=== PATIENT | female | born 1960 | race Two or more races ===

== ENCOUNTER → 2025-01-04 | Outpatient (CLI) | payer MEDICAID ==
[~2025-01-04] VITALS: Ht 175.3 cm; Wt 49.0 kg
[2025-01-04] MEDS: REGADENOSON 0.4 MG/5 ML SYRG IV ONE ×2 (10:21)
--- NOTE | 2025-01-04 12:13 | DVHSR ---
APPROVED REPORT Exam: Nuclear Stress Test BMI: 0 Stress Test Details HR Max Heart Rate (APMHR): 158.809852 bpm Target HR (85% APMHR): 134.600731 bpm BP ECG Stress ECG Conclusion lvef 68% normal pefusion scan no severe ischemia noted NM EXAM: Myocardial Perfusion REST/STRESS Imaging Protocol: Rest Tc-99m/Stress Tc-99m 1 day Resting Data Rest SPECT myocardial perfusion imaging was performed in supine position 60 minutes following the int ravenous injection of 11.1 mCi of Tc-99m Sestamibi. Time of rest injection: 09:05 Date: 01/04/2025 Time of rest imagin: Date: 01/04/2025 Administration Route: IV Administration Site: Right AC Pharmacologic Stress Pharmacologic stress test was performed by injecting Regadenoson 0.4 mg IV push followed by the intra venous injection of 32.3 mCi of Tc-99m Sestamibi. Time of stress injection: 10: Date: 01/04/2025 Time of stress imagin: Date: 01/04/2025 Administration Route: IV Administration Site: Right AC Gated Stress SPECT was performed 60 minutes after stress injection. The images were gated to evaluate regional wall motion and calculate left ventricular ejection fracti on. Stress only was performed in the Supine position. Nuclear Conclusion Nuclear Findings: negative for ischemia lvef 68% normal pefusion scan no severe ischemia noted
== END | disposition home or self-care (01) ==
LOC: XYW 08:35
PROVIDERS: ATTEND Specialist
DX: Z01.810 Encounter for preprocedural cardiovascular examination (principal); I50.9 Heart failure, unspecified; J44.9 Chronic obstructive pulmonary disease, unspecified
CPT/HCPCS: 78452; 93017; A9500; J2785

== ENCOUNTER 2025-01-27 12:34 | Inpatient (IN) | payer MEDICAID ==
[~2025-01-27] VITALS: Ht 182.9 cm; Wt 55.2 kg
[2025-01-27 15:20] LABS: Basophils # (auto) 0 10 ^3/uL (0-0.2); Basophils % (auto) 0.7 % (0.0-2.0); Eosinophils # (auto) 0 10 ^3/uL (0-0.8); Hematocrit 28.6 % (36.0-46.0); Lymphocytes # (auto) 0.6 10 ^3/uL (0.4-5.4); Mean Corpuscular Hemoglobin 30.1 pg (28.0-32.0); Monocytes # (auto) 0.3 10 ^3/uL (0-1.3); Neutrophils # (auto) 3.9 10 ^3/uL (1.6-8.6); Red Cell Distribution Width 15.1 % (11.8-14.3)
[2025-01-27 15:22] LABS: Eosinophils % (auto) 0.6 % (0.0-7.0); Hemoglobin 9.4 g/dL (12.2-16.2); Lymphocytes % (auto) 12.2 % (10.0-50.0); Mean Corpuscular Volume 91.1 fL (80.0-100.0); Monocytes % (auto) 5.9 % (0.0-12.0); Neutrophils % (auto) 80.6 % (37.0-80.0); Nucleated Red Blood Cells % 0.1 %; Platelet Count (auto) 629 10^3/uL (140-450); Red Blood Cells 3.13 10^6/uL (4.0-5.20); White Blood Cell 4.9 10^3/uL (4.4-10.8)
--- NOTE | 2025-01-27 15:47 | DVH ---
INDICATION: lower back pain COMPARISON: None TECHNIQUE: 3 views of the lumbar spine were obtained. FINDINGS: There is postsurgical changes with intrapedicular screws and rods seen extending from thoracic to the S1. Vertebral body augmentation of L1 and L3. Disc spacer seen at L1-L2 2 L3 and L5-S1. The lumbar vertebral alignment is normal. The intervertebral disc spaces are well-maintained. No significant facet arthropathy is noted. No acute fracture, vertebral compression deformity or aggressive osseous lesions. The paravertebral soft tissues are grossly unremarkable. This posterior skin brien from recent post op. IMPRESSION: 1. Postsurgical changes with various procedures as described above the lumbar spine appears to be in sa tisfactory position.
[2025-01-27 15:59] LABS: Chloride 107 mmol/L (98-107); Potassium 4.8 mmol/L (3.5-5.1); Sodium 140 mmol/L (136-145)
[2025-01-27 16:00] LABS: Anion Gap 6 (5-15); Carbon Dioxide 27 mmol/L (20-31)
[2025-01-27 16:05] LABS: BUN/Creatinine Ratio 29.5 (10.0-20.0); Blood Urea Nitrogen 18 mg/dL (9-23); Glucose 87 mg/dL (74-106)
[2025-01-27 16:08] LABS: Calcium 8.1 mg/dL (8.7-10.4)
--- NOTE | 2025-01-27 18:35 | ED.PDOC ---
History of Present Illness HPI Comments 64-year-old female states that she had back surgery 2 placed hardware in her back for scoliosis 3 weeks ago and has been recovering in a rehab facility. Patient states that she does not really like the rehab facility and was hoping to find a different place so they sent her to the emergency department. Patient reports chronic back pain upper and lower that has not changed recently. Chief Complaint: Back Pain Time Seen by MD: 17:55 Primary Care Provider: NATACHA Allergies: Coded Allergies: NO KNOWN ALLERGIES (Unverified , 01/04/25) Information Source: Patient, Emergency Med Personnel Mode of Arrival: EMS Severity: Moderate Timing: Days, Weeks, Months Duration: Since onset Past Medical History PAST MEDICAL HISTORY: Arthritis Surgical History (Other): major hardware surgery for scoliosis Social History Smoker: Non-Smoker Alcohol: Denies ETOH Use Musculoskeletal: reports: back pain All Other Systems: Reviewed and Negative Physical Exam General Appearance: Mild Distress, Thin HEENT: Normal ENT Inspection, Pharynx Normal, TMs Normal Neck: Full Range of Motion, Non-Tender, Normal, Normal Inspection Respiratory: Chest Non-Tender, Lungs Clear, No Accessory Muscle Use, No Respiratory Distress, Normal Breath Sounds Cardiovascular: No Edema, No JVD, No Murmur, No Gallop, Normal Peripheral Pulses, Regular Rate/Rhythm Breast Exam: Deferred Gastrointestinal: No Organomegaly, Non Tender, No Pulsatile Mass, Normal Bowel Sounds, Soft Genitalia: Deferred Pelvic: Deferred Rectal: Deferred Extremities: Normal capillary refill, Pelvis stable, Other (long surgical incision from thoracic to lumbar spine area, closed, appears to be healing without complications) Musculoskeletal : Apperance: Normal Neurologic: Alert, careers counsellor II-XII nml as Tested, No Motor Deficits, Normal Affect, Normal Mood, No Sensory Deficits Cerebellar Function: Normal Reflexes: Normal Skin: Normal Color, Warm, Wounds, Other (long surgical incision from thoracic to lumbar spine area, closed, appears to be healing without complications) Lymphatic: No Adenopathy Was a procedure done? Was a procedure done?: No Differential Dx Considerations may include: Differential diagnosis includes but not limited to: Bony fracture, dislocation, compartment syndrome, infection, nerve injury, vascular injury and others X-Ray, Labs, Meds, VS Vital Signs Date Time Temp Pulse Resp B/P (MAP) Pulse Ox O2 Delivery O2 Flow Rate FiO2 01/27/25 18:17 98.0 87 16 105/74 (84) 94 98.0 01/27/25 12:34 97.5 90 18 98/70 (79) 94 97.5 Lab Test 01/27/25 15:00 Range/Units White Blood Count 4.9 4.4-10.8 10^3/uL Red Blood Count 3.13 L 4.0-5.20 10^6/uL Hemoglobin 9.4 L 12.2-16.2 g/dL Hematocrit 28.6 L 36.0-46.0 % Mean Corpuscular Volume 91.1 80.0-100.0 fL Mean Corpuscular Hemoglobin 30.1 28.0-32.0 pg Mean Corpuscular Hemoglobin Concent 33.0 32.0-36.0 g/dL Red Cell Distribution Width 15.1 H 11.8-14.3 % Platelet Count 629 H 140-450 10^3/uL Mean Platelet Volume 6.2 L 6.9-10.8 fL Neutrophils (%) (Auto) 80.6 H 37.0-80.0 % Lymphocytes (%) (Auto) 12.2 10.0-50.0 % Monocytes (%) (Auto) 5.9 0.0-12.0 % Eosinophils (%) (Auto) 0.6 0.0-7.0 % Basophils (%) (Auto) 0.7 0.0-2.0 % Neutrophils # (Auto) 3.9 1.6-8.6 10 ^3/uL Lymphocytes # (Auto) 0.6 0.4-5.4 10 ^3/uL Monocytes # (Auto) 0.3 0-1.3 10 ^3/uL Eosinophils # (Auto) 0 0-0.8 10 ^3/uL Basophils # (Auto) 0 0-0.2 10 ^3/uL Nucleated Red Blood Cells 0.1 % Sodium Level 140 136-145 mmol/L Potassium Level 4.8 3.5-5.1 mmol/L Chloride Level 107 98-107 mmol/L Carbon Dioxide Level 27 20-31 mmol/L Anion Gap 6 5-15 Blood Urea Nitrogen 18 9-23 mg/dL Creatinine 0.61 0.550-1.02 mg/dL Glomerular Filtration Rate Calc 101 >90 mL/min BUN/Creatinine Ratio 29.5 H 10.0-20.0 Serum Glucose 87 74-106 mg/dL Calcium Level 8.1 L 8.7-10.4 mg/dL Beta HCG, Quantitative 4.0 1.5-4.2 mIU/mL Time of 1ST Reevaluation: 18:33 Reevaluation 1ST: Unchanged Patient Education/Counseling: Diagnosis, Treatment Family Education/Counseling: No Family Present Departure 1 Departure Time of Disposition: 18:33 Impression: Primary Impression: Chronic back pain Disposition: [facility] INPATIENT REHAB FACILITY Condition: Stable Additional Instructions: Follow up with your Primary Physician Return to the Emergency Department for any worsening symptoms or concerns Discharged With: Self Comments January 27, 6:00 p.m.: services clerk unavailable to help the patient find new placement for rehab facility at this time. Patient to return to her current rehab facility over the weekend and can pursue a different facility on Thursday Critical Care Note Critical Care Time?: No Stability Stability form required: No Heart Score Heart Score: Heart Score Response (Comments) Value History N/A 0 EKG N/A 0 Age N/A 0 Risk Factors N/A 0 Troponin N/A 0 Total 0 XU NICHOLS MD January 27, 2025 18:35
[2025-01-27 19:20] VITALS: PULSE 76; RESP 24; O2SAT 96
[2025-01-27] MEDS ORDERED: ONDANSETRON HCL 4 MG/2 ML VIAL IV PRN (22:45)
[2025-01-27] MEDS ORDERED: MORPHINE SULFATE INJ 2 MG/ml SYRG IV PRN (22:45)
[2025-01-27] MEDS ORDERED: ACETAMINOPHEN 325 MG TAB PO PRN (22:45)
[2025-01-27] MEDS ORDERED: DOCUSATE SOD 100 MG CAP PO PRN (22:45)
[2025-01-27] MEDS ORDERED: NITROGLYCERIN 0.4 MG SL TAB SL PRN (22:45)
[2025-01-27] MEDS: oxyCODONE ER 10 MG TAB PO ONE (22:54)
[2025-01-27] MEDS: SODIUM CHLORIDE 0.9% 1,000 ML IV SCH (23:13)
[2025-01-27] MEDS: ENOXAPARIN SOD 40 MG/0.4 ML SYRINGE SC SCH (23:14)
[2025-01-28] VITALS (7 sets, daily range): BP systolic 88–108; BP diastolic 52–72; PULSE 78–93; RESP 14–18; TEMP 97.5–98; O2SAT 93–100
[2025-01-28] MEDS: HYDROcodone-ACET 5/325MG TAB PO PRN (01:21)
[2025-01-28] MEDS: MORPHINE SULFATE INJ 2 MG/ml SYRG IV PRN (02:36)
[2025-01-28] MEDS ORDERED: GABA-1250 PO ×2 (02:59→03:11)
[2025-01-28] MEDS ORDERED: MID10T PO ×2 (02:59→03:11)
[2025-01-28] MEDS ORDERED: APIX2.5T PO (02:59)
[2025-01-28] MEDS ORDERED: LEVO112T4 PO (03:11)
[2025-01-28] MEDS ORDERED: APIX5TAB PO (03:11)
[2025-01-28] MEDS ORDERED: CHOL400C15 PO (03:11)
[2025-01-28] MEDS ORDERED: IBU600T PO (03:11)
[2025-01-28] MEDS ORDERED: AMPH10TA2 PO (03:11)
[2025-01-28] MEDS ORDERED: OXYC-113 PO (03:11)
[2025-01-28] MEDS ORDERED: ROMO105I SC (03:11)
[2025-01-28] MEDS ORDERED: ALBU2TAB11 PO (03:11)
[2025-01-28 07:09] LABS: COVID19 ANTIGEN SOFIA FIA NEGATIVE (NEGATIVE)
--- NOTE | 2025-01-28 07:12 | DVHHP2 ---
Admitting Diagnosis: Generalized weakness. History of Present Illness Patient is a 64 y/o female with a PMHx of chronic back pain coming in with a complaint of generalized weakness s/p major back surgery for scoliosis x 3 weeks ago, Patient also states that her post-op health is declining. While in the emergency department the patient was evaluated by the provider, Labs, vital signs, and imagining monitored. Patient will be admitted for further evaluation and treatment. I discussed admission with the patient/family and is in agreement to treatment plan. Patient Family History: FH: heart attack Grandmother FH: lung cancer Uncle FH: neuropathy Grandmother High blood pressure Grandmother Varicose veins G8 MOTHER Allergies: Coded Allergies: NO KNOWN ALLERGIES (Unverified , 01/04/25) Home Meds Reported Medications Oxycodone W/ Acetaminophen (Endocet) 1 Tab Tab, 1 TAB PO QID, #120 TAB 01/28/25 Ibuprofen Micronized (MOTRIN TABLET) 600 Mg Tb, 800 MG PO PRN, #40 TAB *Black box warning-NSAIDS can increase risk of RI & hypertension, GI irritation, ulceration, bleed, perferation. Do not use post cardiac surgery. Use short duration/lowest effective dose. 01/28/25 Amphetamine-Dextroamphetamine (Adderall) 10 Mg Tab, 15 MG PO TID, TAB 01/28/25 Apixaban Base (ELIQUIS) 5 Mg Tab, 5 MG PO BID, TAB 01/28/25 Romosozumab-Aqqg (Evenity) 105 Mg/1.17 Ml Inj, 210 MG SC, INJ 01/28/25 Gabapentin (Gabapentin) 300 Mg Cap, 300 MG PO TID for 30 Days, MG 01/28/25 Levothyroxine Sodium (Levothyroxine Sodium) 112 Mcg Tab, 112 MCG PO QAM for 30 Days, MCG 01/28/25 Midodrine HCl (Midodrine HCl) 10 Mg Tab, 10 MG PO TID, TAB 01/28/25 Albuterol Sulfate (Albuterol Sulfate) 2 Mg Tab, 0.09 MG PO Q6HP, MG 01/28/25 Cholecalciferol (VITAMIN D3) 400 Unit Cap, 125 MG PO DAILY, CAP 01/28/25 Discontinued Reported Medications Midodrine HCl (Midodrine HCl) 10 Mg Tab, PO TID, TAB 01/28/25 Apixaban Base (ELIQUIS) 2.5 Mg Tab, PO BID, TAB 01/28/25 Gabapentin (Gabapentin) 300 Mg Cap, PO TID for 30 Days, MG 01/28/25 Current Medications Current Medications Medications (Trade) Dose Ordered Sig/Maryan Route PRN Reason Start Time Stop Time Status Last Admin Sodium Chloride 1,000 ml @ 120 mls/hr Q8H20M IV 01/27/25 22:45 01/28/25 15:49 Acetaminophen (Tylenol Tablet) 325 mg Q4HP PRN PO MILD PAIN (1-3 PAIN SCALE) 01/27/25 22:45 Acetaminophen/ Hydrocodone Bitart ([place] 5/325MG Tab) 1 tab Q4HP PRN PO MODERATE PAIN (4-6 PAIN SCALE) 01/27/25 22:45 01/28/25 17:52 Ondansetron HCl (Zofran) 4 mg Q4HP PRN IV NAUSEA / VOMITING 01/27/25 22:45 Docusate Sodium (Colace Capsule) 100 mg BIDPRN PRN PO FOR CONSTIPATION 01/27/25 22:45 Morphine Sulfate 2 mg Q4HPRN PRN IV SEVERE PAIN (7-10 PAIN SCALE) 01/27/25 22:45 01/28/25 02:36 Enoxaparin Sodium (Lovenox) 40 mg DAILY SC 01/27/25 22:45 01/27/25 23:14 Nitroglycerin (Ntrostat Sublingual) 0.4 mg Q5MINP PRN SL FOR CHEST PAIN 01/27/25 22:45 Morphine Sulfate 2 mg Q30M PRN IV FOR CHEST PAIN 01/27/25 22:45 Review of Systems Constitutional: denies chills, denies fever, denies malaise Eyes: denies eye pain, denies vision change ENT: denies ear pain, denies headache, denies nasal congestion, denies painful swallowing, denies voice change Cardiovascular: denies chest pain, denies edema, denies orthopnea, denies palpitations, denies paroxysmal nocturnal dyspnea Respiratory: denies cough, denies shortness of breath Gastrointestinal: denies constipation, denies diarrhea, denies nausea, denies vomiting Genitourinary: denies dysuria, denies frequent urination, denies urethral discharge Musculoskeletal: denies back pain, denies joint pain, denies muscle pain Skin: denies bruising, denies itching, denies rash Neurological: denies focal weakness, denies headache, denies sensory changes Psychiatric: denies anxiety, denies depression Endocrine: denies polydipsia, denies polyuria Hematologic/Lymphatic: denies easy bleeding, denies easy bruising, denies enlarged lymph nodes Allergic/Immunologic: denies allergy, denies hives Vital Signs Vital Signs Date Time Temp Pulse Resp B/P (MAP) Pulse Ox O2 Delivery O2 Flow Rate FiO2 01/28/25 17:00 97.8 89 18 105/62 (76) 93 97.8 01/28/25 08:00 Room Air* 0 21 Physical Exam General Appearance: alert, no distress HEENT: EOMI, PERRLA, normal external inspect of ears, no icterus, no nasal drainage Neck: no carotid bruit, no jugular venous distention (JVD), no lymphadenopathy Chest: normal thorax Respiratory: clear to auscultation, normal air movement Cardiovascular: regular rate and rhythm, no diastolic murmur, no jugular venous distention (JVD), no rub, no systolic murmur Abdominal: soft, no hepatomegaly, no mass, no splenomegaly, no tenderness Genitourinary: grossly normal external Musculoskeletal: no joint tenderness, no swelling Extremities: normal pulses, no calf tenderness, no clubbing, no cyanosis, no edema Skin: no bruising, no jaundice, no rash Neurological: alert, No focal deficit Results Labs Test 01/28/25 06:00 01/28/25 05:36 01/27/25 15:00 Range/Units SARS-CoV-2 Antigen (Rapid) Negative NEGATIVE White Blood Count 3.9 L 4.4-10.8 10^3/uL Red Blood Count 3.35 L 4.0-5.20 10^6/uL Hemoglobin 10.1 L 12.2-16.2 g/dL Hematocrit 31.8 #L 36.0-46.0 % Mean Corpuscular Volume 94.7 80.0-100.0 fL Mean Corpuscular Hemoglobin 30.0 28.0-32.0 pg Mean Corpuscular Hemoglobin Concent 31.7 L 32.0-36.0 g/dL Red Cell Distribution Width 15.7 H 11.8-14.3 % Platelet Count 485 H 140-450 10^3/uL Mean Platelet Volume 6.9 6.9-10.8 fL Neutrophils (%) (Auto) 75.4 37.0-80.0 % Lymphocytes (%) (Auto) 17.0 10.0-50.0 % Monocytes (%) (Auto) 6.2 0.0-12.0 % Eosinophils (%) (Auto) 0.4 0.0-7.0 % Basophils (%) (Auto) 1.0 0.0-2.0 % Neutrophils # (Auto) 2.9 1.6-8.6 10 ^3/uL Lymphocytes # (Auto) 0.7 0.4-5.4 10 ^3/uL Monocytes # (Auto) 0.2 0-1.3 10 ^3/uL Eosinophils # (Auto) 0 0-0.8 10 ^3/uL Basophils # (Auto) 0 0-0.2 10 ^3/uL Nucleated Red Blood Cells 0.1 % Sodium Level 137 136-145 mmol/L Potassium Level 4.3 3.5-5.1 mmol/L Chloride Level 107 98-107 mmol/L Carbon Dioxide Level 20 20-31 mmol/L Anion Gap 10 5-15 Blood Urea Nitrogen 13 9-23 mg/dL Creatinine 0.58 0.550-1.02 mg/dL Glomerular Filtration Rate Calc 102 >90 mL/min BUN/Creatinine Ratio 22.4 H 10.0-20.0 Serum Glucose 78 74-106 mg/dL Calcium Level 8.8 8.7-10.4 mg/dL Total Bilirubin 0.3 0.2-1.0 mg/dL Aspartate Amino Transferase (AST) 35 13-40 U/L Alanine Aminotransferase (ALT) 24 7-40 U/L Alkaline Phosphatase 195 H 46-116 U/L Total Protein 5.9 5.7-8.2 g/dL Albumin 3.3 3.2-4.8 g/dL Beta HCG, Quantitative 4.0 1.5-4.2 mIU/mL Microbiology Date/Time Source Procedure Growth Status 01/28/25 05:55 Nose MRSA Screen - Final Complete Admitting Diagnosis: 1. Dehydration IV fluids 2. Failure to thrive managed services sales consultant consult, DC planning 3. Chronic post operative pain PRN Pain meds 4. COPD Medication, monitoring 5. Cachexia General Diet Plan discussed with: Patient, Other SARAH BARRAZA NP January 28, 2025 07:12
--- NOTE | 2025-01-28 07:13 | DVHDS2 ---
Discharge Summary Date of Admission January 27, 2025 at 22:39 Date of Discharge: January 27, 2025 Labs/Diagnostic Data: Laboratory Results Test 01/28/25 06:00 01/28/25 05:36 01/27/25 15:00 SARS-CoV-2 Antigen (Rapid) Negative (NEGATIVE) Eosinophils (%) (Auto) 0.6 % (0.0-7.0) Eosinophils # (Auto) 0 10 ^3/uL (0-0.8) Basophils # (Auto) 0 10 ^3/uL (0-0.2) Nucleated Red Blood Cells 0.1 % Beta HCG, Quantitative 4.0 mIU/mL (1.5-4.2) Discharge Disposition: [facility] Discharge Instruct/Medications Diet: Cardiac 2g Na,low cholest Activity: Light activity Discharge Statement: "Patient was advised to return to the ER or call 911 if any headaches, dizziness, shortness of breath, chest pain, abdominal pain, bleeding, fevers, or worsening of medical condition. Patient was counseled about treatment plan, medications, possible side effects, patientverbalized understanding. All questions were answered to the best of my ability. This discharge took greater then 30 minutes in planning, reviewing documen tation, counseling the patient, and discussing with other team members." ASSESSMENT ASSESSMENT Assessment SARAH BARRAZA NP January 28, 2025 07:13
[2025-01-28 07:16] LABS: Alanine Aminotransferase 24 U/L (7-40); Albumin 3.3 g/dL (3.2-4.8); Anion Gap 10 (5-15); Aspartate Aminotransferase 35 U/L (13-40); BUN/Creatinine Ratio 22.4 (10.0-20.0); Blood Urea Nitrogen 13 mg/dL (9-23); Calcium 8.8 mg/dL (8.7-10.4); Glucose 78 mg/dL (74-106); Potassium 4.3 mmol/L (3.5-5.1); Sodium 137 mmol/L (136-145); Total Protein 5.9 g/dL (5.7-8.2)
[2025-01-28 07:18] LABS: Alkaline Phosphatase 195 U/L (46-116); Bilirubin, Total 0.3 mg/dL (0.2-1.0); Carbon Dioxide 20 mmol/L (20-31); Chloride 107 mmol/L (98-107)
[2025-01-28 07:43] LABS: Basophils # (auto) 0 10 ^3/uL (0-0.2); Eosinophils # (auto) 0 10 ^3/uL (0-0.8)
[2025-01-28 07:51] LABS: Eosinophils % (auto) 0.4 % (0.0-7.0); Hematocrit 31.8 % (36.0-46.0); Hemoglobin 10.1 g/dL (12.2-16.2); Lymphocytes # (auto) 0.7 10 ^3/uL (0.4-5.4); Mean Corpuscular Hgb Conc. 31.7 g/dL (32.0-36.0); Mean Corpuscular Volume 94.7 fL (80.0-100.0); Monocytes # (auto) 0.2 10 ^3/uL (0-1.3); Monocytes % (auto) 6.2 % (0.0-12.0); Neutrophils # (auto) 2.9 10 ^3/uL (1.6-8.6); Neutrophils % (auto) 75.4 % (37.0-80.0); Nucleated Red Blood Cells % 0.1 %; Platelet Count (auto) 485 10^3/uL (140-450); Red Blood Cells 3.35 10^6/uL (4.0-5.20); Red Cell Distribution Width 15.7 % (11.8-14.3); White Blood Cell 3.9 10^3/uL (4.4-10.8)
--- NOTE | 2025-01-28 12:18 | DVHPN2 ---
Progress Note - Dictate Date Seen: January 28, 2025 Medical Necessity Reason Pt with a Central, PICC or Fol: No vital signs Vital Sign Date Time Temp Pulse Resp B/P (MAP) Pulse Ox O2 Delivery O2 Flow Rate FiO2 01/28/25 08:38 97.7 93 18 98/71 (80) 96 97.7 01/28/25 08:00 Room Air* 0 21 Total Intake and Output 01/27/25 01/27/25 01/28/25 15:00 23:00 07:00 Intake Total 490 ml Balance 490 ml medications Current Medications Medications Dose Ordered Sig/Maryan Route Start Time Stop Time Status Last Admin Dose Admin Sodium Chloride 1,000 ml @ 120 mls/hr Q8H20M IV 01/27/25 22:45 01/27/25 23:13 120 MLS/HR Acetaminophen 325 mg Q4HP PRN PO 01/27/25 22:45 Acetaminophen/ Hydrocodone Bitart 1 tab Q4HP PRN PO 01/27/25 22:45 01/28/25 01:21 1 TAB Ondansetron HCl 4 mg Q4HP PRN IV 01/27/25 22:45 Docusate Sodium 100 mg BIDPRN PRN PO 01/27/25 22:45 Morphine Sulfate 2 mg Q4HPRN PRN IV 01/27/25 22:45 01/28/25 02:36 2 MG Enoxaparin Sodium 40 mg DAILY SC 01/27/25 22:45 01/27/25 23:14 40 MG Nitroglycerin 0.4 mg Q5MINP PRN SL 01/27/25 22:45 Morphine Sulfate 2 mg Q30M PRN IV 01/27/25 22:45 objective General Appearance: alert, no distress HEENT: EOMI, PERRLA, normal external inspect of ears, no icterus, no nasal drainage Neck: no carotid bruit, no jugular venous distention (JVD), no lymphadenopathy Chest: normal thorax Respiratory: clear to auscultation, normal air movement Cardiovascular: regular rate and rhythm, no diastolic murmur, no jugular venous distention (JVD), no rub, no systolic murmur Abdominal: soft, no hepatomegaly, no mass, no splenomegaly, no tenderness Genitourinary: grossly normal external Musculoskeletal: no joint tenderness, no swelling Extremities: normal pulses, no calf tenderness, no clubbing, no cyanosis, no edema Skin: no bruising, no jaundice, no rash Neurological: alert, No focal deficit laboratory and microbiology Laboratory Tests 01/28/25 05:36 Test 01/28/25 05:36 Range/Units Serum Glucose 78 74-106 mg/dL Problem List 1. Dehydration IV fluids 2. Failure to thrive convention services manager consult, DC planning 3. Chronic post operative pain PRN Pain meds 4. COPD Medication, monitoring 5. Cachexia General Diet Assessment/Plan Subjective: Patient is awake and alert. Objective: Patient was admitted for dehydration, generalized weakness, and failure to thrive. Patient is from [facility]. Patient reportedly had back surgery three weeks ago for scoliosis. Plan: Physical therapy evaluation. Patient is requesting forensic social worker consult for discharge planning to [facility]. Plan discussed with: Patient, Other SARAH BARRAZA NP January 28, 2025 12:18
[2025-01-29 01:00] VITALS: BP 101/61; PULSE 83; RESP 14; TEMP 97.8; O2SAT 99
[2025-01-29 05:00] VITALS: BP 102/54; PULSE 72; RESP 14; TEMP 97.7; O2SAT 100
--- NOTE | 2025-01-29 07:44 | DVHPN2 ---
Progress Note - Dictate Date Seen: January 29, 2025 Medical Necessity Reason Pt with a Central, PICC or Fol: No vital signs Vital Sign Date Time Temp Pulse Resp B/P (MAP) Pulse Ox O2 Delivery O2 Flow Rate FiO2 01/29/25 05:00 97.7 72 14 102/54 (70) 100 97.7 01/28/25 20:00 Nasal Cannula* 2 28 Total Intake and Output 01/28/25 01/28/25 01/29/25 15:00 23:00 07:00 Intake Total 240 ml 400 ml Output Total 400 ml Balance -160 ml 400 ml medications Current Medications Medications Dose Ordered Sig/Maryan Route Start Time Stop Time Status Last Admin Dose Admin Sodium Chloride 1,000 ml @ 120 mls/hr Q8H20M IV 01/27/25 22:45 01/28/25 15:49 120 MLS/HR Acetaminophen 325 mg Q4HP PRN PO 01/27/25 22:45 Acetaminophen/ Hydrocodone Bitart 1 tab Q4HP PRN PO 01/27/25 22:45 01/29/25 00:31 1 TAB Ondansetron HCl 4 mg Q4HP PRN IV 01/27/25 22:45 Docusate Sodium 100 mg BIDPRN PRN PO 01/27/25 22:45 Morphine Sulfate 2 mg Q4HPRN PRN IV 01/27/25 22:45 01/28/25 21:25 2 MG Enoxaparin Sodium 40 mg DAILY SC 01/27/25 22:45 01/27/25 23:14 40 MG Nitroglycerin 0.4 mg Q5MINP PRN SL 01/27/25 22:45 Morphine Sulfate 2 mg Q30M PRN IV 01/27/25 22:45 objective General Appearance: alert, no distress HEENT: EOMI, PERRLA, normal external inspect of ears, no icterus, no nasal drainage Neck: no carotid bruit, no jugular venous distention (JVD), no lymphadenopathy Chest: normal thorax Respiratory: clear to auscultation, normal air movement Cardiovascular: regular rate and rhythm, no diastolic murmur, no jugular venous distention (JVD), no rub, no systolic murmur Abdominal: soft, no hepatomegaly, no mass, no splenomegaly, no tenderness Genitourinary: grossly normal external Musculoskeletal: no joint tenderness, no swelling Extremities: normal pulses, no calf tenderness, no clubbing, no cyanosis, no edema Skin: no bruising, no jaundice, no rash Neurological: alert, No focal deficit laboratory and microbiology Laboratory Tests 01/28/25 05:36 Test 01/28/25 05:36 Range/Units Serum Glucose 78 74-106 mg/dL Problem List 1. Dehydration IV fluids 2. Failure to thrive director of business services consult, DC planning 3. Chronic post operative pain PRN Pain meds 4. COPD Medication, monitoring 5. Cachexia General Diet Assessment/Plan Subjective Patient is awake and alert. Objective Discussed with patient in regards of plan of care. Patient was admitted from [facility]. She was found to be dehydrated and very cachectic. Patient had a recent lumbar back surgery for scoliosis. She is requesting a SNF down the [place]. director of business services have been consulted. Plan Stop IV fluids. Patient is eating and drinking well. Adjust pain medications. Continue physical therapy. Plan for discharge once bed is available. Plan discussed with: Patient, Other SARAH BARRAZA NP January 29, 2025 07:44
[2025-01-29] MEDS ORDERED: IBUPROFEN 600 MG TAB PO SCH (07:45)
[2025-01-29] MEDS ORDERED: OXYCODONE PO PRN (08:30)
[2025-01-29] MEDS ORDERED: ACETAMINOPHEN 325 MG TAB PO PRN (08:30)
[2025-01-29] MEDS ORDERED: ACETAMINOPHEN PO PRN (08:30)
[2025-01-29] MEDS: GABAPENTIN 300 MG CAP PO SCH (08:35)
[2025-01-29] MEDS: APIXABAN 5 MG TAB PO SCH (08:36)
[2025-01-29 08:47] VITALS: BP 108/73; PULSE 71; RESP 18; TEMP 97.9; O2SAT 97
[2025-01-29 10:00] LABS: Potassium 3.7 mmol/L (3.5-5.1); Sodium 143 mmol/L (136-145)
[2025-01-29 10:01] LABS: Anion Gap 8 (5-15); Carbon Dioxide 27 mmol/L (20-31)
[2025-01-29 10:06] LABS: BUN/Creatinine Ratio 24.1 (10.0-20.0); Blood Urea Nitrogen 14 mg/dL (9-23); Glucose 94 mg/dL (74-106)
[2025-01-29 10:07] LABS: Chloride 108 mmol/L (98-107); Magnesium 1.8 mg/dL (1.6-2.6)
[2025-01-29 10:08] LABS: Phosphorus 2.6 mg/dL (2.4-5.1)
[2025-01-29] MEDS: CHOLECALCIFEROL (VITD3) 1,000UNIT=25mCg TAB PO SCH (11:45)
[2025-01-29] MEDS: HYDROmorphone HCL 2 MG/ML VL/or syr IV ONE (11:46)
[2025-01-29] MEDS ORDERED: ACETAMINOPHEN PO SCH (12:00)
[2025-01-29] MEDS ORDERED: OXYCODONE PO SCH (12:00)
[2025-01-29 12:42] VITALS: BP 104/65; PULSE 94; RESP 18; TEMP 98.1; O2SAT 98
[2025-01-29] MEDS: MIDODRINE HCL 10 MG TAB PO SCH (13:30)
[2025-01-29] MEDS: AMPHETAMINE DEXTROAMPHETAMINE PO SCH (13:50)
[2025-01-29 17:02] VITALS: BP 102/60; PULSE 78; RESP 18; TEMP 97.7; O2SAT 100
[2025-01-29 20:48] VITALS: BP 96/70; PULSE 102; RESP 16; TEMP 97.8; O2SAT 93
[2025-01-30] VITALS (8 sets, daily range): BP systolic 99–115; BP diastolic 59–74; PULSE 77–101; RESP 16–17; TEMP 97.7–98.4; O2SAT 95–100
[2025-01-30] MEDS: LEVOTHYROXINE SODIUM 112 MCG TAB PO SCH (05:50)
[2025-01-30] MEDS: IBUPROFEN 600 MG TAB PO PRN (09:43)
[2025-01-30] MEDS ORDERED: PERCOT PO (11:38)
[2025-01-30] MEDS ORDERED: NALO4SPR2 (11:38)
--- NOTE | 2025-01-30 20:23 | DVHDS2 ---
Discharge Summary Date of Admission January 27, 2025 at 22:39 Date of Discharge: January 30, 2025 Labs/Diagnostic Data: Laboratory Results Test 01/29/25 09:35 01/28/25 06:00 01/28/25 05:36 01/27/25 15:00 Sodium Level 143 mmol/L (136-145) Potassium Level 3.7 mmol/L (3.5-5.1) Chloride Level 108 mmol/L (98-107) Carbon Dioxide Level 27 mmol/L (20-31) Anion Gap 8 (5-15) Blood Urea Nitrogen 14 mg/dL (9-23) Creatinine 0.58 mg/dL (0.550-1.02) Glomerular Filtration Rate Calc 102 mL/min (>90) BUN/Creatinine Ratio 24.1 (10.0-20.0) Serum Glucose 94 mg/dL (74-106) Calcium Level 9.0 mg/dL (8.7-10.4) Phosphorus Level 2.6 mg/dL (2.4-5.1) Magnesium Level 1.8 mg/dL (1.6-2.6) Thyroid Stimulating Hormone (TSH) 6.08 uIU/mL (0.55-4.78) SARS-CoV-2 Antigen (Rapid) Negative (NEGATIVE) White Blood Count 3.9 10^3/uL (4.4-10.8) Red Blood Count 3.35 10^6/uL (4.0-5.20) Hemoglobin 10.1 g/dL (12.2-16.2) Hematocrit 31.8 % (36.0-46.0) Mean Corpuscular Volume 94.7 fL (80.0-100.0) Mean Corpuscular Hemoglobin 30.0 pg (28.0-32.0) Mean Corpuscular Hemoglobin Concent 31.7 g/dL (32.0-36.0) Red Cell Distribution Width 15.7 % (11.8-14.3) Platelet Count 485 10^3/uL (140-450) Mean Platelet Volume 6.9 fL (6.9-10.8) Neutrophils (%) (Auto) 75.4 % (37.0-80.0) Lymphocytes (%) (Auto) 17.0 % (10.0-50.0) Monocytes (%) (Auto) 6.2 % (0.0-12.0) Eosinophils (%) (Auto) 0.4 % (0.0-7.0) Basophils (%) (Auto) 1.0 % (0.0-2.0) Neutrophils # (Auto) 2.9 10 ^3/uL (1.6-8.6) Lymphocytes # (Auto) 0.7 10 ^3/uL (0.4-5.4) Monocytes # (Auto) 0.2 10 ^3/uL (0-1.3) Eosinophils # (Auto) 0 10 ^3/uL (0-0.8) Basophils # (Auto) 0 10 ^3/uL (0-0.2) Nucleated Red Blood Cells 0.1 % Total Bilirubin 0.3 mg/dL (0.2-1.0) Aspartate Amino Transferase (AST) 35 U/L (13-40) Alanine Aminotransferase (ALT) 24 U/L (7-40) Alkaline Phosphatase 195 U/L (46-116) Total Protein 5.9 g/dL (5.7-8.2) Albumin 3.3 g/dL (3.2-4.8) Beta HCG, Quantitative 4.0 mIU/mL (1.5-4.2) Other Laboratory Tests 01/29/25 09:35 01/28/25 05:36 Brief Hx & Hospital Course: Patient is a 64 y/o female with a PMHx of chronic back pain coming in with a complaint of generalized weakness s/p major back surgery for scoliosis x 3 weeks ago, Patient also states that her post-op health is declining. While in the emergency department the patient was evaluated by the provider, Labs, vital signs, and imagining monitored. Patient was admitted on 01/27/2025 from [facility]. Patient states she was there for less than 24 hours. She was transferred from a rehab center down [facility]. Patient states she spent 3 weeks at [facility] status post lumbar back surgery for scoliosis. Patient was found to be cachectic, failure to thrive, and she was dehydrated. Patient had a liberal diet and she was given IV fluids. Patient was also seen and evaluated by physical therapy and she was able to ambulate well. Patient decided against going to a intermediate facility and home health was arranged with DME. Patient was instructed to follow-up with her PCP in 1 week. She states she will follow-up with her orthopedic spinal surgeon in 1 week. The patient received proper medical treatment and medications. Vital signs, Imaging and Laboratory Work was monitored daily. All consults recommendations were followed as provided. There were no complaints or new complaints upon discharge, all questions and concerns were answered. Patient was advised to return to the ER or call 911 if any headaches, dizziness, shortness of breath, chest pain, bleeding, fevers, or worsening of medical condition. Patient/Family was counseled about treatment plan, medications, possible side effects, patient verbalized understanding. All questions were answered to the best of my ability. The patient symptoms improved and they are okay to be DC. Condition at Discharge: Stable Final Diagnosis/Problems List Chronic back pain Recent surgery for scoliosis Dehydration Failure to thrive Chronic post operative pain COPD Cachexia Discharge Disposition: Home with Health Services Discharge Instruct/Medications Diet: Cardiac 2g Na,low cholest Activity: Light activity Follow Up/Referral: DC TO SNF FOR REHAB RECENT BACK SURGERY 3 WEEKS AGO WITH HARDWARE PLACEMENT FOR SCOLIOSIS Medications: SEE DC MED LIST Discharge Statement: "Patient was advised to return to the ER or call 911 if any headaches, dizziness, shortness of breath, chest pain, abdominal pain, bleeding, fevers, or worsening of medical condition. Patient was counseled about treatment plan, medications, possible side effects, patientverbalized understanding. All questions were answered to the best of my ability. This discharge took greater then 30 minutes in planning, reviewing documentation, counseling the patient, and discussing with other team members." ASSESSMENT ASSESSMENT Assessment DEHYDRATION CHRONIC BACK PAIN FAILURE TO THRIVE RECENT BACK SURGERY FOR SCOLIOSIS SARAH BARRAZA NP January 30, 2025 20:23
[2025-01-31] VITALS (7 sets, daily range): BP systolic 95–107; BP diastolic 53–70; PULSE 74–93; RESP 17–19; TEMP 97.8–98.4; O2SAT 96–98
--- NOTE | 2025-01-31 16:57 | DVHDS2 ---
Discharge Summary Date of Admission January 27, 2025 at 22:39 Date of Discharge: January 30, 2025 Labs/Diagnostic Data: Laboratory Results Test 01/29/25 09:35 01/28/25 06:00 01/28/25 05:36 01/27/25 15:00 Sodium Level 143 mmol/L (136-145) Potassium Level 3.7 mmol/L (3.5-5.1) Chloride Level 108 mmol/L (98-107) Carbon Dioxide Level 27 mmol/L (20-31) Anion Gap 8 (5-15) Blood Urea Nitrogen 14 mg/dL (9-23) Creatinine 0.58 mg/dL (0.550-1.02) Glomerular Filtration Rate Calc 102 mL/min (>90) BUN/Creatinine Ratio 24.1 (10.0-20.0) Serum Glucose 94 mg/dL (74-106) Calcium Level 9.0 mg/dL (8.7-10.4) Phosphorus Level 2.6 mg/dL (2.4-5.1) Magnesium Level 1.8 mg/dL (1.6-2.6) Thyroid Stimulating Hormone (TSH) 6.08 uIU/mL (0.55-4.78) SARS-CoV-2 Antigen (Rapid) Negative (NEGATIVE) White Blood Count 3.9 10^3/uL (4.4-10.8) Red Blood Count 3.35 10^6/uL (4.0-5.20) Hemoglobin 10.1 g/dL (12.2-16.2) Hematocrit 31.8 % (36.0-46.0) Mean Corpuscular Volume 94.7 fL (80.0-100.0) Mean Corpuscular Hemoglobin 30.0 pg (28.0-32.0) Mean Corpuscular Hemoglobin Concent 31.7 g/dL (32.0-36.0) Red Cell Distribution Width 15.7 % (11.8-14.3) Platelet Count 485 10^3/uL (140-450) Mean Platelet Volume 6.9 fL (6.9-10.8) Neutrophils (%) (Auto) 75.4 % (37.0-80.0) Lymphocytes (%) (Auto) 17.0 % (10.0-50.0) Monocytes (%) (Auto) 6.2 % (0.0-12.0) Eosinophils (%) (Auto) 0.4 % (0.0-7.0) Basophils (%) (Auto) 1.0 % (0.0-2.0) Neutrophils # (Auto) 2.9 10 ^3/uL (1.6-8.6) Lymphocytes # (Auto) 0.7 10 ^3/uL (0.4-5.4) Monocytes # (Auto) 0.2 10 ^3/uL (0-1.3) Eosinophils # (Auto) 0 10 ^3/uL (0-0.8) Basophils # (Auto) 0 10 ^3/uL (0-0.2) Nucleated Red Blood Cells 0.1 % Total Bilirubin 0.3 mg/dL (0.2-1.0) Aspartate Amino Transferase (AST) 35 U/L (13-40) Alanine Aminotransferase (ALT) 24 U/L (7-40) Alkaline Phosphatase 195 U/L (46-116) Total Protein 5.9 g/dL (5.7-8.2) Albumin 3.3 g/dL (3.2-4.8) Beta HCG, Quantitative 4.0 mIU/mL (1.5-4.2) Other Laboratory Tests 01/29/25 09:35 01/28/25 05:36 Brief Hx & Hospital Course: Patient is a 64 y/o female with a PMHx of chronic back pain coming in with a complaint of generalized weakness s/p major back surgery for scoliosis x 3 weeks ago, Patient also states that her post-op health is declining. While in the emergency department the patient was evaluated by the provider, Labs, vital signs, and imagining monitored. Patient was admitted on 01/27/2025 from [facility]. Patient states she was there for less than 24 hours. She was transferred from a rehab center down [facility]. Patient states she spent 3 weeks at [facility] status post lumbar back surgery for scoliosis. Patient was found to be cachectic, failure to thrive, and she was dehydrated. Patient had a liberal diet and she was given IV fluids. Patient was also seen and evaluated by physical therapy and she was able to ambulate well. Patient decided against going to a chcf facility and home health was arranged with DME. Patient was instructed to follow-up with her PCP in 1 week. She states she will follow-up with her orthopedic spinal surgeon in 1 week. The patient received proper medical treatment and medications. Vital signs, Imaging and Laboratory Work was monitored daily. All consults recommendations were followed as provided. There were no complaints or new complaints upon discharge, all questions and concerns were answered. Patient was advised to return to the ER or call 911 if any headaches, dizziness, shortness of breath, chest pain, bleeding, fevers, or worsening of medical condition. Patient/Family was counseled about treatment plan, medications, possible side effects, patient verbalized understanding. All questions were answered to the best of my ability. The patient symptoms improved and they are okay to be DC. Condition at Discharge: Stable Final Diagnosis/Problems List Chronic back pain Recent surgery for scoliosis Dehydration Failure to thrive Chronic post operative pain COPD Cachexia Discharge Disposition: Home with Health Services Discharge Instruct/Medications Diet: Cardiac 2g Na,low cholest Activity: Light activity Follow Up/Referral: DC TO SNF FOR REHAB RECENT BACK SURGERY 3 WEEKS AGO WITH HARDWARE PLACEMENT FOR SCOLIOSIS Medications: SEE DC MED LIST Discharge Statement: "Patient was advised to return to the ER or call 911 if any headaches, dizziness, shortness of breath, chest pain, abdominal pain, bleeding, fevers, or worsening of medical condition. Patient was counseled about treatment plan, medications, possible side effects, patientverbalized understanding. All questions were answered to the best of my ability. This discharge took greater then 30 minutes in planning, reviewing documentation, counseling the patient, and discussing with other team members." ASSESSMENT ASSESSMENT Hospital Course Patient is a 64 y/o female with a PMHx of chronic back pain coming in with a complaint of generalized weakness s/p major back surgery for scoliosis x 3 weeks ago, Patient also states that her post-op health is declining. While in the emergency department the patient was evaluated by the provider, Labs, vital signs, and imagining monitored. Patient was admitted on 01/27/2025 from [facility]. Patient states she was there for less than 24 hours. She was transferred from a rehab center down [facility]. Patient states she spent 3 weeks at [facility] status post lumbar back surgery for scoliosis. Patient was found to be cachectic, failure to thrive, and she was dehydrated. Patient had a liberal diet and she was given IV fluids. Patient was also seen and evaluated by physical therapy and she was able to ambulate well. Patient decided against going to a chcf facility and home health was arranged with DME. Patient was instructed to follow-up with her PCP in 1 week. She states she will follow-up with her orthopedic spinal surgeon in 1 week. The patient received proper medical treatment and medications. Vital signs, Imaging and Laboratory Work was monitored daily. All consults recommendations were followed as provided. There were no complaints or new complaints upon discharge, all questions and concerns were answered. Patient was advised to return to the ER or call 911 if any headaches, dizziness, shortness of breath, chest pain, bleeding, fevers, or worsening of medical condition. Patient/Family was counseled about treatment plan, medications, possible side effects, patient verbalized understanding. All questions were answered to the best of my ability. The patient symptoms improved and they are okay to be DC. Assessment Chronic back pain Recent surgery for scoliosis Dehydration Failure to thrive Chronic post operative pain COPD Cachexia SARAH BARRAZA NP January 31, 2025 16:57
--- NOTE | 2025-01-31 20:25 | DVHPN2 ---
Progress Note - Dictate Date Seen: January 30, 2025 Medical Necessity Reason Pt with a Central, PICC or Fol: No vital signs Vital Sign Date Time Temp Pulse Resp B/P (MAP) Pulse Ox O2 Delivery O2 Flow Rate FiO2 01/31/25 14:40 75 18 100/60 01/31/25 13:19 98.0 96 01/31/25 08:00 Nasal Cannula* 2 28 Total Intake and Output 01/30/25 01/30/25 01/31/25 15:00 23:00 07:00 Intake Total 420 ml 1740 ml 1100 ml Output Total 3 ml Balance 420 ml 1737 ml 1100 ml objective General Appearance: alert, no distress HEENT: EOMI, PERRLA, normal external inspect of ears, no icterus, no nasal drainage Neck: no carotid bruit, no jugular venous distention (JVD), no lymphadenopathy Chest: normal thorax Respiratory: clear to auscultation, normal air movement Cardiovascular: regular rate and rhythm, no diastolic murmur, no jugular venous distention (JVD), no rub, no systolic murmur Abdominal: soft, no hepatomegaly, no mass, no splenomegaly, no tenderness Genitourinary: grossly normal external Musculoskeletal: no joint tenderness, no swelling Extremities: normal pulses, no calf tenderness, no clubbing, no cyanosis, no edema Skin: no bruising, no jaundice, no rash Neurological: alert, No focal deficit laboratory and microbiology Laboratory Tests 01/29/25 09:35 01/28/25 05:36 Test 01/29/25 09:35 Range/Units Serum Glucose 94 74-106 mg/dL Problem List 1. Dehydration IV fluids 2. Failure to thrive medical services coordinator consult, DC planning 3. Chronic post operative pain PRN Pain meds 4. COPD Medication, monitoring 5. Cachexia General Diet Assessment/Plan Subjective Patient is awake and alert. Objective Patient was admitted on 01/27/20[facility] from [facility]. Patient states she was there for less than 24 hours. She was transferred from a rehab center down [facility]. Patient states she spent 3 weeks at [facility] status post lumbar back surgery for scoliosis. Patient was found to be cachectic, failure to thrive, and she was dehydrated. Patient had a liberal diet and she was given IV fluids. Patient was also seen and evaluated by physical therapy and she was able to ambulate well. Patient decided against going to a residential facility and home health was arranged with DME. She states she will follow-up with her orthopedic spinal surgeon in 1 week. Discharge was held until DME equipment could be delivered to home. Plan DC once DME equipment is delivered. Plan discussed with: Patient, Other SARAH BARRAZA NP January 31, 2025 20:25
== END 2025-01-31 17:39 | disposition home health service (06) | DRG 422 ==
LOC: EDBD 12:34 → ER 12:37 → OVERFLOW 22:39 → EAST 01-28 02:15
PROVIDERS: ADMIT Internal Medicine; ATTEND Internal Medicine
DX: E86.0 Dehydration (principal); R64 Cachexia; R62.7 Adult failure to thrive; M41.9 Scoliosis, unspecified; J44.9 Chronic obstructive pulmonary disease, unspecified; G89.28 Other chronic postprocedural pain; Z20.822 Contact with and (suspected) exposure to COVID-19; M54.9 Dorsalgia, unspecified; Z82.49 Family history of ischemic heart disease and other diseases of the circulatory system; Z80.1 Family history of malignant neoplasm of trachea, bronchus and lung; Z79.1 Long term (current) use of non-steroidal anti-inflammatories (NSAID); Z79.899 Other long term (current) drug therapy; Z79.01 Long term (current) use of anticoagulants; Z68.1 Body mass index [BMI] 19.9 or less, adult
CPT/HCPCS: 36415; 72100; 80048; 80053; 83735; 84100; 84443; 84702; 85025; 87081; 87426; 97110; 97116; 97163; 97530; G0378

== ENCOUNTER 2025-04-14 01:41 | Emergency (ER) | payer MEDICAID ==
[~2025-04-14] VITALS: Ht 177.8 cm; Wt 51.9 kg
[~2025-04-14 01:41] MED LIST: ALBU2TAB11 PO; AMPH10TA2 PO; APIX5TAB PO; CHOL400C15 PO; GABA-1250 PO; IBU600T PO; LEVO112T4 PO; MID10T PO; NALO4SPR2; OXYC-113 PO; PERCOT PO; ROMO105I SC
[2025-04-14 01:44] VITALS: BP 99/63; PULSE 99; RESP 18; TEMP 98.2; O2SAT 92
--- NOTE | 2025-04-14 02:13 | ED.PDOC ---
Musculoskeletal HPI Comments 64 year old female with a Hx of CHF and a recent Spinal Fusion Surgery presents to the ED for the c/c of Bilateral Leg Edema w/ associated Scaling. Pt states that her symptoms started shortly after her Spinal Fusion Surgery, and has since found no alleviating factors. Pt notes that her Legs have progressively gotten more and more swollen prompting her visit to the ED. Pt does note on taking Eliquis and Aspirin at this time. No other associated symptoms, modifiers, recent injuries or sick contacts present at this time. Chief Complaint: Lower Extremity Time Seen by MD: 02:09 Primary Care Provider: NATACHA Reviewed Notes: Nurses Notes, Medications, Allergies Allergies: Coded Allergies: NO KNOWN ALLERGIES (Unverified , 01/04/25) Home Meds Active Scripts Elastic Bandages & Supports (ANTI-EMBOLISM STOCKINGS 1) [facility] Mis, MED XX DAILY, #10 Prov:XU NICHOLS MD 04/14/25 Naloxone HCl (Narcan) 4 Mg/0.1 Ml Spr, 4 MG NA PRN, #1 SPRAY Prov:SARAH BARRAZA NP 01/30/25 Oxycodone W/ Acetaminophen (Percocet 5/325MG) 1 Tab Tb, 1 TAB PO TID PRN for 15 Days, #45 TAB Prov:SARAH BARRAZA NP 01/30/25 Reported Medications Oxycodone W/ Acetaminophen (Endocet) 1 Tab Tab, 1 TAB PO QID, #120 TAB 01/28/25 Ibuprofen Micronized (MOTRIN TABLET) 600 Mg Tb, 800 MG PO PRN, #40 TAB *Black box warning-NSAIDS can increase risk of CT & hypertension, GI irritation, ulceration, bleed, perferation. Do not use post cardiac surgery. Use short duration/lowest effective dose. 01/28/25 Amphetamine-Dextroamphetamine (Adderall) 10 Mg Tab, 15 MG PO TID, TAB 01/28/25 Apixaban Base (ELIQUIS) 5 Mg Tab, 5 MG PO BID, TAB 01/28/25 Romosozumab-Aqqg (Evenity) 105 Mg/1.17 Ml Inj, 210 MG SC, INJ 01/28/25 Gabapentin (Gabapentin) 300 Mg Cap, 300 MG PO TID for 30 Days, MG 01/28/25 Levothyroxine Sodium (Levothyroxine Sodium) 112 Mcg Tab, 112 MCG PO QAM for 30 Days, MCG 01/28/25 Midodrine HCl (Midodrine HCl) 10 Mg Tab, 10 MG PO TID, TAB 01/28/25 Albuterol Sulfate (Albuterol Sulfate) 2 Mg Tab, 0.09 MG PO Q6HP, MG 01/28/25 Cholecalciferol (VITAMIN D3) 400 Unit Cap, 125 MG PO DAILY, CAP 01/28/25 Information Source: Patient Mode of Arrival: Ambulatory Location: Bilateral Extremity Location: Foot, Leg Timing: Days Prehospital treatment: None Severity: Moderate Able to Move Extremity: Yes Bear Weight: Fully Pain: Moderate Hand Dominance: Right Mechanism: None Circumstances: Spontaneous Onset of Symptoms: Spontaneous Symptoms: Swelling, Erythema DVT Risk Factors: CHF Last Tetanus: Unknown Associated signs and symptoms: None Past Medical History PAST MEDICAL HISTORY: Arthritis, CHF Family History Family History: Unknown Social History Smoker: Non-Smoker Alcohol: Denies ETOH Use Drugs: Denies Drug Use Lives In: Home Constitutional: denies: chills, diaphoresis, fatigue, fever, malaise, sweats, weakness, others EENTM: denies: blurred vision, double vision, ear bleeding, ear discharge, ear drainage, ear pain, ear ringing, eye pain, eye redness, hearing loss, mouth pain, mouth swelling, nasal discharge, nose bleeding, nose congestion, nose pain, photophobia, tearing, throat pain, throat swelling, voice changes, others Respiratory: denies: cough, hemoptysis, orthopnea, SOB at rest, shortness of breath, SOB with excertion, stridor, wheezing, others Cardiovascular: denies: chest pain, dizzy spells, diaphoresis, Dyspnea on exertion, edema, irregular heart beat, left arm pain, lightheadedness, palpitations, PND, syncope, others Gastrointestinal: denies: abdomen distended, abdominal pain, blood streaked bowels, constipated, diarrhea, dysphagia, difficulty swallowing, hematemesis, melena, nausea, poor appetite, poor fluid intake, rectal bleeding, rectal pain, vomiting, others Genitourinary: denies: abnormal vagina bleeding, burning, dyspareunia, dysuria, flank pain, frequency, hematuria, incontinence, pain, , vagina discharge, urgency, others Neurological: denies: dizziness, fainting, headache, left sided numbness, left sided weakness, numbness, paresthesia, pre-existing deficit, right sided numbness, right sided weakness, seizure, speech problems, tingling, tremors, weakness, others Musculoskeletal: reports: others (bilateral leg edema); denies: back pain, gout, joint pain, joint swelling, muscle pain, muscle stiffness, neck pain Integumetry: denies: bruises, change in color, change in hair/nails, dryness, laceration, lesions, lumps, rash, wounds, others Allergic/Immunocompromised: denies: Difficulty Healing, Frequent Infections, Hives, Itching, others Hematologic/Lymphatic: denies: anemia, blood clots, easy bleeding, easy bruising, swollen glands, others Endocrine: denies: excessive hunger, excessive sweating, excessive thirst, excessive urination, flushing, intolerance to cold, intolerance to heat, unexplained weight gain, unexplained weight loss, others Psychiatric: denies: anxiety, bipolar disorder, depression, hopeless, panic disorder, schizophrenia, sleepless, suicidal, others All Other Systems: Reviewed and Negative Physical Exam General Appearance: Mild Distress, Normal, Thin, Other (chronic ill appearing) HEENT: Normal ENT Inspection, Pharynx Normal, TMs Normal Neck: Full Range of Motion, Non-Tender, Normal, Normal Inspection Respiratory: Chest Non-Tender, Lungs Clear, No Accessory Muscle Use, No Respiratory Distress, Normal Breath Sounds Cardiovascular: No Edema, No JVD, No Murmur, No Gallop, Normal Peripheral Pulses, Regular Rate/Rhythm Breast Exam: Deferred Gastrointestinal: No Organomegaly, Non Tender, No Pulsatile Mass, Normal Bowel Sounds, Soft Genitalia: Deferred Pelvic: Deferred Rectal: Deferred Extremities: Calf tenderness, Decreased range of motion, Leg edema, Non-tender, Pedal edema, Swelling Musculoskeletal : Apperance: Normal Neurologic: Alert, No Motor Deficits, Normal Affect, Normal Mood, No Sensory Deficits Cerebellar Function: Normal Reflexes: Normal Skin: Dry, Normal Color, Warm Lymphatic: No Adenopathy Was a procedure done? Was a procedure done?: No Differential Diagnosis EXT Differential Diagnosis: Cellulitis, CHF, Deep Vein Thrombosis, Rheumatoid, Neurovascular injury, Arthritis, Bursitis X-Ray, Labs, Meds, VS Vital Signs Date Time Temp Pulse Resp B/P (MAP) Pulse Ox O2 Delivery O2 Flow Rate FiO2 04/14/25 01:44 98.2 99 18 99/63 92 98.2 Lab Test 04/14/25 03:25 04/14/25 02:20 Range/Units Troponin I High Sensitivity 12 12 </=34 ng/L White Blood Count 6.3 4.4-10.8 10^3/uL Red Blood Count 3.96 L 4.0-5.20 10^6/uL Hemoglobin 11.2 L 12.2-16.2 g/dL Hematocrit 34.2 L 36.0-46.0 % Mean Corpuscular Volume 86.2 80.0-100.0 fL Mean Corpuscular Hemoglobin 28.4 28.0-32.0 pg Mean Corpuscular Hemoglobin Concent 32.9 32.0-36.0 g/dL Red Cell Distribution Width 16.5 H 11.8-14.3 % Platelet Count 421 140-450 10^3/uL Mean Platelet Volume 6.5 L 6.9-10.8 fL Neutrophils (%) (Auto) 78.3 37.0-80.0 % Lymphocytes (%) (Auto) 13.1 10.0-50.0 % Monocytes (%) (Auto) 6.5 0.0-12.0 % Eosinophils (%) (Auto) 1.3 0.0-7.0 % Basophils (%) (Auto) 0.8 0.0-2.0 % Neutrophils # (Auto) 4.9 1.6-8.6 10 ^3/uL Lymphocytes # (Auto) 0.8 0.4-5.4 10 ^3/uL Monocytes # (Auto) 0.4 0-1.3 10 ^3/uL Eosinophils # (Auto) 0.1 0-0.8 10 ^3/uL Basophils # (Auto) 0.1 0-0.2 10 ^3/uL Nucleated Red Blood Cells 0.0 % Sodium Level 139 136-145 mmol/L Potassium Level 3.6 3.5-5.1 mmol/L Chloride Level 105 98-107 mmol/L Carbon Dioxide Level 31 20-31 mmol/L Anion Gap 3 L 5-15 Blood Urea Nitrogen 18 9-23 mg/dL Creatinine 1.14 H 0.550-1.02 mg/dL Glomerular Filtration Rate Calc 54 >90 mL/min BUN/Creatinine Ratio 15.8 10.0-20.0 Serum Glucose 99 74-106 mg/dL Calcium Level 8.5 L 8.7-10.4 mg/dL Total Bilirubin 0.2 0.2-1.0 mg/dL Aspartate Amino Transferase (AST) 28 13-40 U/L Alanine Aminotransferase (ALT) 12 7-40 U/L Alkaline Phosphatase 150 H 46-116 U/L B-Type Natriuretic Peptide 106.91 0-100 pg/mL Total Protein 7.1 5.7-8.2 g/dL Albumin 4.2 3.2-4.8 g/dL Time of 1ST Reevaluation: 02:39 Reevaluation 1ST: Unchanged Patient Education/Counseling: Diagnosis, Treatment, Need For Follow Up Family Education/Counseling: No Family Present Departure 1 Departure Time of Disposition: 04:00 Impression: Primary Impression: Venous stasis dermatitis of both lower extremities Disposition: 01 HOME / SELF CARE / HOMELESS Condition: Stable e-Prescriptions Elastic Bandages & Supports (ANTI-EMBOLISM STOCKINGS 1) [facility] MED XX DAILY, #10 Prov: XU NICHOLS MD 04/14/25 Discharged With: Self Critical Care Note Critical Care Time?: No Stability Stability form required: No Heart Score Heart Score: Heart Score Response (Comments) Value History N/A 0 EKG N/A 0 Age N/A 0 Risk Factors N/A 0 Troponin N/A 0 Total 0 I personally scribed for XU NICHOLS MD ([email or web address]) on 04/14/25 at 02:13. Electronically submitted by Reno Angel ([email or web address]). XU NICHOLS MD Apr 14, 2025 02:13
[2025-04-14 02:47] LABS: Hematocrit 34.2 % (36.0-46.0); Hemoglobin 11.2 g/dL (12.2-16.2); Mean Corpuscular Hemoglobin 28.4 pg (28.0-32.0); Mean Corpuscular Volume 86.2 fL (80.0-100.0); Nucleated Red Blood Cells % 0.0 %
[2025-04-14 02:56] LABS: Alanine Aminotransferase 12 U/L (7-40); Albumin 4.2 g/dL (3.2-4.8); Anion Gap 3 (5-15); BUN/Creatinine Ratio 15.8 (10.0-20.0); Blood Urea Nitrogen 18 mg/dL (9-23); Carbon Dioxide 31 mmol/L (20-31); Chloride 105 mmol/L (98-107); Glucose 99 mg/dL (74-106); Potassium 3.6 mmol/L (3.5-5.1); Sodium 139 mmol/L (136-145); Total Protein 7.1 g/dL (5.7-8.2)
[2025-04-14 02:58] LABS: Alkaline Phosphatase 150 U/L (46-116); Bilirubin, Total 0.2 mg/dL (0.2-1.0); Calcium 8.5 mg/dL (8.7-10.4)
[2025-04-14] MEDS ORDERED: [UNRECOGNIZED DRUG - CODE] XX (03:31)
== END 2025-04-14 05:25 | disposition home or self-care (01) ==
LOC: ER 01:41
DX: I87.2 Venous insufficiency (chronic) (peripheral) (principal); I50.9 Heart failure, unspecified; M19.90 Unspecified osteoarthritis, unspecified site; Z79.899 Other long term (current) drug therapy
CPT/HCPCS: 36415; 80053; 83880; 84484; 85025